=== PATIENT | female | born 1995 | race Caucasian/White ===

== ENCOUNTER → 2020-03-11 | Outpatient (REF) | payer OTHER ==
[2020-03-11 17:21] LABS: HEMATOCRIT 40.9 % (36.0-47.0); HEMOGLOBIN 13.4 g/dl (12.0-15.5); MEAN CORPUSCULAR HEMOGLOBIN 28.6 pg (27.0-33.0); MEAN CORPUSCULAR HGB CONC 32.8 g/dl (32.0-36.5); MEAN CORPUSCULAR VOLUME 87.2 fl (80.0-96.0); PLATELET COUNT, AUTOMATED 233 10^3/uL (150-450); RED BLOOD COUNT 4.69 10^6/uL (4.00-5.40); WHITE BLOOD COUNT 11.2 10^3/uL (4.0-10.0)
[2020-03-11 17:27] LABS: HEMOGLOBIN A1c 5.2 %
[2020-03-11 17:37] LABS: GLUCOSE CHALLENGE TEST 1 HOUR 102 MG/DL (LESS THAN 140)
[2020-03-11 18:25] LABS: HEPATITIS C VIRUS ABY INDEX 0.1 INDEX (<0.8); HIV 1&2 SCREEN CENTAUR NEGATIVE (NEGATIVE)
== END ==
LOC: M PLALAB 13:12
PROVIDERS: ATTEND Advanced Practice Midwife
DX: O99.211 Obesity complicating pregnancy, first trimester (principal)

== ENCOUNTER → 2020-04-29 | Outpatient (CLI) | payer OTHER ==
--- NOTE | 2020-04-29 17:01 | REP ---
INDICATION: ANATOMY. COMPARISON: None. TECHNIQUE: Multiple ultrasound images of the gravid uterus FINDINGS: There is a single intrauterine gestation in a breech presentation. The placenta is posterior with grade 1 maturity. On the 2 images demonstrating the lower uterine segment there appears to be at least a marginal placenta previa. There are no other images of the lower uterine segment. The cervix measures 4.5 cm length. The placental cord insertion is located centrally on the placenta. There are no images of the cord insertion. There is a three-vessel cord. Ultrasound gestational age by the study today is 18 weeks 1 day with an CHRISTOFER of 09/30/2020. The LMP is unknown. weight is 213 g, 0 lb-7 oz. This is the 29th percentile for 18 weeks 1 day. The following anatomic structures are identified and are unremarkable: Cranium, cavum septum pellucidum, falx, intracranial ventricles, choroid plexus, cerebellum, cisterna magna, facial profile, upper lip, cardiac rhythm, four-chamber heart, cardiac right left ventricular outflow tracts, diaphragm, stomach, right and left kidneys, bladder, spine, upper lower extremities bilaterally, 3 vessel cord. The abdominal wall is described as being normal, however I am able to find an image of the anteriabdominal wall. IMPRESSION: No anomalies are identified, however follow-up study demonstrating the cord insertion and abdominal wall might be considered. [email or web address]?requestType=[email or web address]&caching=true&usePpv=true\T \preloadMargin=5&studyUID=[id number]&seriesUID=[id number]&objectUID=[id number]&frameNumber=1&tpbphmLmsfoy=875\T \ljkxqfWwynp=408&ncpe=421&bwujoic=4637&region=0.65491674,0.08597394,0.22001128,0. 5473749&contentType=image/png&fvm=0&showOverlays=True&interpolation=bicubic&e xactSize=true&noredirect=true&DDelement=FrameView0_IV&DDsrcStudy=[id number]&DDsrcSeries=[id number]&DDVolumetric=false&DDSopClassUid=[id number]&SZtdgJdrqjkw=[id number]&DDFrameOfRef=&KJCap=[id number] <Electronically signed by Sukhwinder He > 04/29/20 [id number]
== END ==
LOC: M WHC 13:48
PROVIDERS: ATTEND Advanced Practice Midwife
DX: Z36.89 Encounter for other specified antenatal screening (principal); Z3A.18 18 weeks gestation of pregnancy

== ENCOUNTER → 2020-06-03 | Outpatient (CLI) | payer OTHER ==
--- NOTE | 2020-06-03 12:31 | REP ---
INDICATION: F/U ANATOMY/MARGINAL PLACENTA PREVIA. COMPARISON: Comparison sonography April 29, 2020.. TECHNIQUE: Transabdominal obstetric sonography. FINDINGS: Scanning through the gravid uterus demonstrates a viable single intrauterine gestation in cephalic lie. motion is observed and heart rate is recorded at 158 beats per minute. A posterior placenta is seen, grade 1, without evidence of placenta previa. Amniotic fluid is subjectively normal. Closed cervical length is measured at 4.1 cm transabdominally. No extrauterine abnormality is observed. Amniotic fluid is subjectively normal. No anomaly is seen. The following anatomic structures are again identified and felt to be unremarkable: cranium, face and profile, four-chamber heart with left and right ventricular outflow tract views, diaphragm, left-sided stomach, abdominal wall cord insertion, right and left kidney, urinary bladder, three-vessel cord. Biometry chart: BPD 5.7 cm, 23 weeks 4 days Head circumference 21.0 cm, 23 weeks 1 day Abdominal circumference 17.1 cm, 22 weeks 0 days Femur length 4.0 cm, 22 weeks 6 days Humeral length 3.7 cm, 23 weeks 1 day HC AC ratio normal 1.23 Cephalic index normal 0.76 Estimated weight 509 g, 1 lb 1 oz, 17th percentile for 23 weeks 1 day IMPRESSION: Viable single intrauterine gestation at 22 weeks 6 days by today's composite sonographic criteria. CHRISTOFER by today's sonography October 01, 2020. No complication identified. Expected gestational age estimate based on prior sonography is 23 weeks 1 day. CHRISTOFER by prior sonography September 29, 2020. <Electronically signed by Hector Orosco > 06/03/20 [id number]
== END ==
LOC: M WHC 11:28
PROVIDERS: ATTEND Advanced Practice Midwife
DX: O44.22 Partial placenta previa NOS or without hemorrhage, second trimester (principal); Z3A.22 22 weeks gestation of pregnancy

== ENCOUNTER → 2020-08-04 | Outpatient (REF) | payer OTHER ==
[2020-08-04 18:14] LABS: HEMATOCRIT 38.6 % (36.0-47.0); HEMOGLOBIN 12.5 g/dl (12.0-15.5); MEAN CORPUSCULAR HEMOGLOBIN 27.9 pg (27.0-33.0); MEAN CORPUSCULAR HGB CONC 32.4 g/dl (32.0-36.5); MEAN CORPUSCULAR VOLUME 86.2 fl (80.0-96.0); PLATELET COUNT, AUTOMATED 198 10^3/uL (150-450); RED BLOOD COUNT 4.48 10^6/uL (4.00-5.40); WHITE BLOOD COUNT 10.4 10^3/uL (4.0-10.0)
== END ==
LOC: M PLALAB 13:48
PROVIDERS: ATTEND Advanced Practice Midwife
DX: Z3A.22 22 weeks gestation of pregnancy (principal)

== ENCOUNTER → 2020-08-04 | Outpatient (CLI) | payer OTHER ==
--- NOTE | 2020-08-04 15:30 | REP ---
INDICATION: MARGINAL PLACENTA PREVIA. COMPARISON: 06/03/2020. TECHNIQUE: Real-time sonographic evaluation of the gravid uterus performed utilizing transabdominal and endovaginal technique. FINDINGS: Estimated gestational age is32 weeks 0 days, EDC 09/29/2020. Today's measurements indicate appropriate growth. Presentation: Cephalic Placenta posterior, grade 1, without evidence of placenta previa. heart rate is recorded at 135 beats per minute. Amniotic fluid is subjectively normal. SEAN 12.3, normal range 8.6-24.2 Closed cervical length is measured at 3.7 cm. Biometry chart: BPD: 78 mm, 31 weeks 1 days, 37th percentile. HC: 295 mm, 32 weeks 4 days, 59th percentile AC: 276 mm, 31 weeks 5 days, 45th percentile Femur length: 60 mm, 31 weeks 0 days, 35th percentile HC to AC ratio: 1.07, normal range 0.95-1.14. Estimated weight: 1783g, 25th percentile. IMPRESSION: Viable single intrauterine gestation as above. <Electronically signed by Sukhwinder Parker > 08/04/20 [id number]
== END ==
LOC: M WHC 13:47
PROVIDERS: ATTEND Obstetrics & Gynecology
DX: O44.20 Partial placenta previa NOS or without hemorrhage, unspecified trimester (principal); Z3A.32 32 weeks gestation of pregnancy

== ENCOUNTER → 2020-09-02 | Outpatient (REF) | payer OTHER ==
[2020-09-02 13:42] LABS: HEMATOCRIT 37.4 % (36.0-47.0); HEMOGLOBIN 12.3 g/dl (12.0-15.5); MEAN CORPUSCULAR HEMOGLOBIN 28.1 pg (27.0-33.0); MEAN CORPUSCULAR HGB CONC 32.9 g/dl (32.0-36.5); MEAN CORPUSCULAR VOLUME 85.6 fl (80.0-96.0); PLATELET COUNT, AUTOMATED 203 10^3/uL (150-450); RED BLOOD COUNT 4.37 10^6/uL (4.00-5.40); WHITE BLOOD COUNT 9.7 10^3/uL (4.0-10.0)
[2020-09-02 14:12] LABS: ALT/SGPT 12 U/L (12-78); BILIRUBIN,TOTAL 0.3 MG/DL (0.2-1.0); CREATININE FOR GFR 0.54 MG/DL (0.55-1.30); GLOMERULAR FILTRATION RATE > 60.0 (>60); LDH LACTATE DEHYDROGENASE 165 U/L (84-246); URIC ACID 6.2 MG/DL (2.6-6.0)
[2020-09-02 14:16] LABS: TOTAL PROTEIN,RANDOM URINE 29.7 MG/DL (0.0-12.0)
== END ==
LOC: M PLALAB 11:41
PROVIDERS: ATTEND Advanced Practice Midwife
DX: Z36.89 Encounter for other specified antenatal screening (principal); Z3A.36 36 weeks gestation of pregnancy

== ENCOUNTER 2020-09-08 07:38 | Inpatient (IN) | payer OTHER ==
[2020-09-08] VITALS (19 sets, daily range): BP systolic 111–152; BP diastolic 58–97
[~2020-09-08] VITALS: Ht 170.2 cm; Wt 129.1 kg
[2020-09-08] MEDS ORDERED: TUMS500C PO (08:28)
[2020-09-08] MEDS ORDERED: PRENTAB9 PO (08:28)
[2020-09-08] MEDS ORDERED: LIDOCAINE 1% MDV 20ML VIAL INFIL PRN (08:30)
[2020-09-08] MEDS ORDERED: OXYTOCIN DRIP 30 UNITS in IV 1 EA IV PRN (08:30)
[2020-09-08] MEDS: miSOPROStol 50MCG 1/2 TABLET PO SCH ×2 (09:22→13:22)
[2020-09-08 09:43] LABS: HEMATOCRIT 37.3 % (36.0-47.0); HEMOGLOBIN 12.4 g/dl (12.0-15.5); MEAN CORPUSCULAR HEMOGLOBIN 27.9 pg (27.0-33.0); MEAN CORPUSCULAR HGB CONC 33.2 g/dl (32.0-36.5); PLATELET COUNT, AUTOMATED 185 10^3/uL (150-450); RED BLOOD COUNT 4.44 10^6/uL (4.00-5.40); WHITE BLOOD COUNT 9.4 10^3/uL (4.0-10.0)
[2020-09-08 09:52] LABS: ALT/SGPT 14 U/L (12-78); BILIRUBIN,TOTAL 0.2 MG/DL (0.2-1.0); CREATININE FOR GFR 0.61 MG/DL (0.55-1.30); GLOMERULAR FILTRATION RATE > 60.0 (>60); LDH LACTATE DEHYDROGENASE 252 U/L (84-246); URIC ACID 6.1 MG/DL (2.6-6.0)
--- NOTE | 2020-09-08 09:55 | HPE ---
HISTORY AND PHYSICAL DATE OF ADMISSION: 09/08/2020 HISTORY OF PRESENT ILLNESS: Maribel is a 35-year-old 2, para 1, 0, 0, 1 at 37 weeks gestation with an EDC of based on first trimester ultrasound. She presents to labor and delivery today for induction of labor due to the diagnosis of gestational hypertension. She does deny headache, visual disturbances, epigastric pain and right upper quadrant discomfort. She denies vaginal bleeding, leakage of fluid and regular painful contractions and her fetus has been active. Her care was [facility] at [facility] in the first trimester. course complicated by obesity, marginal placenta previa that has resolved and gestational hypertension. OBSTETRIC HISTORY: September of 2018, 38 week gestation, spontaneous labor, 7 pound 12 once male, vaginal delivery. OBSTETRIC LABORATORY DATA: O positive. Antibody screen negative. Syphilis negative. Gonorrhea and chlamydia negative. Hepatitis B surface antigen negative. Hepatitis C antibody non-reactive. HIV non-reactive. Rubella immune. Gestational diabetic screening normal at 106. Urine culture contaminated and never repeated. GBS negative. Preeclamptic profile on 09/02/2020: AST 14, ALT 12, LDH 165, uric acid 6.2. Hemoglobin 12.3, hematocrit 37.4, platelet count 203. Spot urine was 0.11. PAST MEDICAL HISTORY: Obesity. PAST SURGICAL HISTORY: None. FAMILY HISTORY: Heart disease, hypertension. SOCIAL HISTORY: Patient is single. Former smoker quit just prior to . Denies alcohol and drug use. Denies sexually transmitted infections and denies history of abuse physical, sexual or emotional. ALLERGIES: No known drug allergies. CURRENT MEDICATIONS: vitamin. PHYSICAL EXAMINATION: Temperature 98.9, pulse 104, respiration 16, BP 141/97. She is alert and oriented times 3. She is smiling and talkative. heart rate is 130 with moderate variability, positive accelerations, negative decelerations. There is no pattern of regular contractions. Abdomen: Gravid. Cephalic presentation. Estimated weight about 6 pounds. Sterile vaginal exam: Fingertip thick, ballottable, posterior, soft, no show. ASSESSMENT: Intrauterine at 37 weeks gestation, heart rate category 1, gestational hypertension. PLAN: Admit the patient to delivery. Out of bed ad claudio. Routine laboratories including a repeat preeclamptic profile. Saline lock. Regular diet at this time. I plan to start misoprostol 50 mcg by mouth every 4 hours for cervical ripening. May consider Torrez bulb insertion. Likely I.V. Pitocin. Consider assisted rupture of membranes for labor augmentation, the patient is considering an epidural for her labor coping. I did review risks, benefits and alternatives. All of the patient's questions have been answered. She has been verbally consented for emergency surgery and blood products if they are necessary. I do anticipate cervical ripening, active labor and a vaginal delivery.
[2020-09-08] MEDS ORDERED: FENTANYL 2MCG/ML ROPIVACAINE 0.2% IN 0.9% NACL 100ML IVBAG As Ordered ONE (15:46)
[2020-09-08] MEDS ORDERED: EPIDURAL COMMENT XX SCH (16:20)
[2020-09-08] MEDS ORDERED: EPIDURAL/PCA KEYS XX PRN (16:20)
[2020-09-08] MEDS ORDERED: ONDANSETRON 4MG/2ML VIAL IV PRN (16:20)
[2020-09-08] MEDS ORDERED: ePHEDrine SULFATE 25 MG/5 ML(5MG/ML) SYRINGE IV PRN (16:20)
[2020-09-08] MEDS ORDERED: diphenhydrAMINE 50MG/ML VIAL (J1200) IV PRN (16:20)
[2020-09-08] MEDS ORDERED: NALOXONE INJ 0.4MG/1ML VIAL (J2310 PER 1MG) IV PRN (16:20)
[2020-09-08] MEDS ORDERED: FENTANYL/ROPIVACAINE/NACL BAG 100 ML EPIDURAL SCH (16:20)
[2020-09-08] MEDS ORDERED: LACTATED RINGER'S 1000 ML IV PRN (16:20)
[2020-09-08] MEDS ORDERED: REFRIGERATOR IV KEYS XX PRN (16:20)
[2020-09-08] MEDS ORDERED: RHOGAM 300 MCG (1500 IU) INJ (J2790) IM SCH (17:15)
[2020-09-08] MEDS ORDERED: DOCUSATE SODIUM 100MG CAPSULE PO PRN (17:15)
[2020-09-08] MEDS ORDERED: MEASLES,MUMPS,RUBELLA VACCINE INJ (MMR-II) (90707) SC SCH (17:15)
[2020-09-08] MEDS ORDERED: IBUPROFEN 600MG TAB PO PRN (17:15)
[2020-09-08] MEDS ORDERED: ACETAMINOPHEN 500 MG TAB PO PRN (17:15)
[2020-09-08] MEDS ORDERED: ACETAMINOPHEN TAB 650MG DOSE (2X325MG) PO PRN (17:15)
[2020-09-08] MEDS ORDERED: IBUPROFEN 800 MG TAB PO PRN (17:15)
[2020-09-08] MEDS ORDERED: METHYLERGONOVINE MALEATE 0.2 MG TAB PO PRN (17:15)
[2020-09-08] MEDS ORDERED: DIBUCAINE 1% OINTMENT 30GM TOP PRN (17:15)
--- NOTE | 2020-09-08 17:21 | DN ---
DELIVERY NOTE DATE OF DELIVERY: 09/08/2020 TIME OF : 1621 GENDER: Male. APGARS: 8 and 9. LACERATIONS: ANESTHESIA: Epidural. ESTIMATED BLOOD LOSS: 350 mL. COUNTS: Correct and verified. DESCRIPTION OF DELIVERY: Maribel is a 25-year-old 2, para 2-0-0-2 now who is admitted to labor and delivery for induction of labor due to gestational hypertension. Two misoprostol p.o. were utilized and labor ensured. She used an epidural for her labor coping. She had spontaneous rupture of membranes for clear fluid at 1619. She was also fully dilated at 1619. She pushed to a vaginal delivery of a live male in occiput anterior (OA) position with restitution to left occiput transverse (LOT) position at 1621. There was a nuchal cord x1, loose, and reduced manually at the time of delivery. 's shoulders delivered spontaneously and the corpus followed. His mouth and nares were bulb suctioned and he was placed on the maternal abdomen crying and active. Cord was clamped x2 once pulsations ceased and cut by the father of the baby under my direction. Cord blood was obtained. Spontaneous expulsion of an intact placenta with three-vessel cord by Owen mechanism was at 1625. Uterine hemostasis achieved with IV Pitocin rapid infusion and uterine fundal massage. Estimated blood loss 350 mL. Savage male weighed 2640 grams 5 pounds 13 ounces. Apgars 8 and 9. Mom has named her son Lucas and she plans to breastfeed. At the close of delivery, lap counts and instrument counts were correct and verified.
[2020-09-09 06:00] VITALS: BP 131/81
[2020-09-09] MEDS: PRENATAL VITAMINS CHEWABLE TABLET PO SCH (07:57)
[2020-09-09 18:00] VITALS: BP 148/92
[2020-09-10 05:51] VITALS: BP 156/88
[2020-09-10] MEDS ORDERED: IBUP80TA PO (06:29)
[2020-09-10] MEDS ORDERED: ACET-683 PO (06:29)
[2020-09-10] MEDS: PRENATAL VITAMINS CHEWABLE TABLET PO SCH (08:21)
[2020-09-10 17:37] VITALS: BP 143/88
== END 2020-09-10 18:55 | disposition home or self-care (01) | DRG 807 ==
LOC: M LDI 07:38 → M OBS 19:35
PROVIDERS: ADMIT Advanced Practice Midwife; ATTEND Advanced Practice Midwife
PROC: 10E0XZZ Delivery of Products of Conception, External Approach (ICD-10-PCS; principal; 2020-09-08)
PROC: 3E0DXGC Introduction of Other Therapeutic Substance into Mouth and Pharynx, External Approach (ICD-10-PCS; 2020-09-08)
DX: O13.4 Gestational [pregnancy-induced] hypertension without significant proteinuria, complicating childbirth (principal); Z37.0 Single live birth; Z3A.37 37 weeks gestation of pregnancy; O09.523 Supervision of elderly multigravida, third trimester; Z87.891 Personal history of nicotine dependence; O69.81X0 Labor and delivery complicated by cord around neck, without compression, not applicable or unspecified